=== PATIENT | female | born 1970 | race Caucasian/White ===

== ENCOUNTER 2018-09-05 05:33 | Inpatient (IN) | payer OTHER ==
[~2018-09-05] VITALS: Ht 175.3 cm; Wt 97.0 kg
--- NOTE | 2018-09-05 05:49 | ERD ---
ER Documentation Chief Complaint Chief Complaint BIB from [facility],low Na 118 HPI This is a 47-year-old from [facility] secondary to capitation for insurance reasons. She was found to have a sodium of 118 and then treated with normal saline. Patient is capitated to the hospitalist here. Hospitalist made aware upon arrival. Repeat chemistry profile sent off upon arrival to the ER ROS All systems reviewed and are negative except as per history of present illness. Allergies Allergies: Coded Allergies: No Known Allergy (Unverified , 09/05/18) Physical Exam Vitals Vital Signs Date Temp Pulse Resp B/P (MAP) Pulse Ox O2 O2 Flow FiO2 Time Delivery Rate 09/05/18 97.5 86 18 163/99 100 05:39 (120) Physical Exam Const: No acute distress Head: Atraumatic Eyes: Normal Conjunctiva ENT: Normal External Ears, Nose and Mouth. Neck: Full range of motion. No meningismus. Resp: Clear to auscultation bilaterally Cardio: Regular rate and rhythm, no murmurs Abd: Soft, non tender, non distended. Normal bowel sounds Skin: No petechiae or rashes Back: No midline or flank tenderness Ext: No cyanosis, or edema Neur: Awake and alert Psych: Normal Mood and Affect Procedures/MDM Chart reviewed. Patient will be admitted to telemetry for correction of hyponatremia which is severe. Hospitalist made aware at 5:49 AM. Departure Diagnosis: Primary Impression: Hyponatremia Condition: Serious JUAN ANTONIO LOZA Sep 05, 2018 05:49
[2018-09-05] MEDS: ACETAMINOPHEN 325 MG TAB PO PRN ×2 (06:58→16:37)
[2018-09-05] MEDS: SOD CHLORIDE 0.9% 1,000 ML IV SCH ×3 (06:58→22:31)
[2018-09-05] MEDS ORDERED: NACL 0.9% 3 ML SYG IV SCH (07:00)
[2018-09-05] MEDS ORDERED: BENA10TA4 PO (07:15)
[2018-09-05] MEDS ORDERED: CLZP100T PO (07:16)
[2018-09-05] MEDS ORDERED: METF100010 PO (07:17)
[2018-09-05] MEDS ORDERED: FAMO40TA66 PO (07:17)
[2018-09-05] MEDS ORDERED: TRAM50TA PO (07:18)
[2018-09-05 08:02] VITALS: BP 172/90; PULSE 80; RESP 18
[2018-09-05 08:24] VITALS: Ht 175.3 cm; Wt 97.0 kg
--- NOTE | 2018-09-05 08:40 | HP ---
Date/Time of Note Date/Time of Note DATE: 09/05/18 TIME: 08:36 Assessment/Plan VTE Prophylaxis Pharmacological prophylaxis: heparin Lines/Catheters IV Catheter Type (from Nrsg): Saline Lock Assessment/Plan Assessment/Plan 1. Hyponatremia -Patient is on Clozaril for schizophrenia, but has been taking SSRIs since early -Plasma and urine osmolality, urine sodium -Consider nephrology consult 2. Left hip pain: -will order x-ray of the hip 3. Type 2 diabetes: Continue metformin 4. Hypertension: Adjust antihypertensive as needed 5. Schizophrenia: Continue Clozaril Result Diagram: 09/05/18 0556 09/05/18 0556 Results 24hrs Laboratory Tests Test 09/05/18 05:56 09/05/18 08:22 White Blood Count 6.1 Red Blood Count 3.32 L Hemoglobin 10.2 L Hematocrit 28.8 L Mean Corpuscular Volume 86.7 Mean Corpuscular Hemoglobin 30.7 Mean Corpuscular Hemoglobin Concent 35.4 Red Cell Distribution Width 12.5 Platelet Count 282 Mean Platelet Volume 10.0 Immature Granulocytes % 0.300 Neutrophils % 73.0 Lymphocytes % 18.0 Monocytes % 8.1 Eosinophils % 0.3 Basophils % 0.3 Nucleated Red Blood Cells % 0.0 Immature Granulocytes # 0.020 Neutrophils # 4.4 Lymphocytes # 1.1 Monocytes # 0.5 Eosinophils # 0.0 Basophils # 0.0 Nucleated Red Blood Cells # 0.0 Sodium Level 129 L Potassium Level 4.1 Chloride Level 97 Carbon Dioxide Level 24 Anion Gap 8 Blood Urea Nitrogen 12 Creatinine 0.75 Est Glomerular Filtrat Rate mL/min > 60 Glucose Level 121 Uric Acid 3.7 Calcium Level 9.1 Magnesium Level 1.7 Total Bilirubin 0.8 Direct Bilirubin 0.00 Indirect Bilirubin 0.8 Aspartate Amino Transf (AST/SGOT) 19 Alanine Aminotransferase (ALT/SGPT) 17 Alkaline Phosphatase 102 Total Protein 6.2 Albumin 3.5 Globulin 2.70 Albumin/Globulin Ratio 1.29 Bedside Glucose 161 HPI/ROS Admit Date/Time Admit Date/Time Sep 05, 2018 at 05:47 Hx of Present Illness This is a 47-year-old female with a history of hypertension, type 2 diabetes, schizophrenia who initially presented to [facility] complaining of shortness of breath and palpitation X 5 days. She also told me that she has been having left hip pain for the past 3 weeks. She states she did fall on her knees and she thinks is probably related to that. At the outside facility, she was found to have sodium of 118. Patient was transferred to [facility] for insurance reason. She denied chest pain, nausea/vomiting or diarrhea. She said that she has been eating fine. PMH/Family/Social Past Medical History Medical History: other (See HPI) Medications Current Medications Sodium Chloride 1,000 ml @ 100 mls/hr Q10H IV Last administered on 09/05/18at 06:58; Admin Dose 100 MLS/HR; Start 09/05/18 at 06:40 IV Flush (NS 3 ml) 3 ml PER PROTOCOL IV ; Start 09/05/18 at 07:00 Aspirin (Aspirin) 81 mg DAILY PO ; Start 09/05/18 at 09:00 Acetaminophen (Tylenol Tab) 650 mg Q6H PRN PO .PAIN 1-3 OR TEMP Last administered on 09/05/18at 06:58; Admin Dose 650 MG; Start 09/05/18 at 07:00 Heparin Sodium (Porcine) (Heparin (5000 Units/1ml)) 5,000 unit Q12 SC ; Start 09/05/18 at 09:00 Coded Allergies: No Known Allergy (Unverified , 09/05/18) Past Surgical History Past Surgical Hx: other (See HPI) Family History Significant Family History: no pertinent family hx Social History Alcohol Use: none Smoking Status: Never smoker Drug Use: none Exam/Review of Systems Vital Signs Vitals Vital Signs Date Temp Pulse Resp B/P (MAP) Pulse Ox O2 O2 Flow FiO2 Time Delivery Rate 09/05/18 98.3 80 18 172/90 100 Room Air 08:02 (117) Exam Constitutional: other (No acute distress) Head: normocephalic, atraumatic Eyes: EOMI, PERRL Respiratory: clear to auscultation, normal air movement Cardiovascular: regular rate and rhythm, nl pulses Gastrointestinal: soft Extremities: normal pulses JUAN ANTONIO OLIVEIRA MD Sep 05, 2018 08:40
[2018-09-05] MEDS: HEPARIN 5,000 UNIT/1 ML VIAL SC SCH ×2 (09:55→21:10)
[2018-09-05] MEDS: ASPIRIN 81 MG TAB PO SCH (09:55)
[2018-09-05] MEDS: metFORMIN 500 MG TAB PO SCH ×2 (09:56→18:10)
[2018-09-05] MEDS ORDERED: GLUCAGON 1 MG INJ IM PRN (10:00)
[2018-09-05] MEDS ORDERED: GLUCOSE GEL 15 GRAM TUBE PO PRN ×2 (10:00)
[2018-09-05] MEDS ORDERED: GLUCOSE GEL 15 GRAM TUBE BUCCAL PRN (10:00)
[2018-09-05] MEDS ORDERED: DEXTROSE 50% 50 ML SYRINGE IV PRN ×2 (10:00)
--- NOTE | 2018-09-05 14:26 | PN ---
Date/Time of Note Date/Time of Note DATE: 09/05/18 TIME: 14:12 Assessment/Plan VTE Prophylaxis SCD applied (from Nsg): Yes Pharmacological prophylaxis: heparin Lines/Catheters IV Catheter Type (from Nrsg): Saline Lock Assessment/Plan Assessment/Plan 1. Hyponatremia due to excessive water intake(a gallon a day), free water restr iction to 100 cc per day 2. Left lower extremity pain at the back of the thigh, muscular, pain control 3. Right breast infection lesion, doxycycline 4. Type 2 diabetes: Continue metformin 5. Hypertension, benazepril 6. Schizophrenia: Continue Clozaril 7. DVT prophylaxis: heparin Result Diagram: 09/05/18 0556 09/05/18 0556 Results 24hrs Laboratory Tests Test 09/05/18 05:56 09/05/18 08:22 White Blood Count 6.1 Red Blood Count 3.32 L Hemoglobin 10.2 L Hematocrit 28.8 L Mean Corpuscular Volume 86.7 Mean Corpuscular Hemoglobin 30.7 Mean Corpuscular Hemoglobin Concent 35.4 Red Cell Distribution Width 12.5 Platelet Count 282 Mean Platelet Volume 10.0 Immature Granulocytes % 0.300 Neutrophils % 73.0 Lymphocytes % 18.0 Monocytes % 8.1 Eosinophils % 0.3 Basophils % 0.3 Nucleated Red Blood Cells % 0.0 Immature Granulocytes # 0.020 Neutrophils # 4.4 Lymphocytes # 1.1 Monocytes # 0.5 Eosinophils # 0.0 Basophils # 0.0 Nucleated Red Blood Cells # 0.0 Sodium Level 129 L Potassium Level 4.1 Chloride Level 97 Carbon Dioxide Level 24 Anion Gap 8 Blood Urea Nitrogen 12 Creatinine 0.75 Est Glomerular Filtrat Rate mL/min > 60 Glucose Level 121 Osmolality 263 L Uric Acid 3.7 Calcium Level 9.1 Magnesium Level 1.7 Total Bilirubin 0.8 Direct Bilirubin 0.00 Indirect Bilirubin 0.8 Aspartate Amino Transf (AST/SGOT) 19 Alanine Aminotransferase (ALT/SGPT) 17 Alkaline Phosphatase 102 Total Protein 6.2 Albumin 3.5 Globulin 2.70 Albumin/Globulin Ratio 1.29 Bedside Glucose 161 Subjective 24 Hr Interval Summary Free Text/Dictation left leg pain Exam/Review of Systems Exam Vitals Vital Signs Date Temp Pulse Resp B/P (MAP) Pulse Ox O2 O2 Flow FiO2 Time Delivery Rate 09/05/18 98.3 80 18 172/90 100 Room Air 08:02 (117) Constitutional: alert, oriented, well developed Psych: no complaints, nl mood/affect Head: normocephalic, atraumatic Eyes: nl conjunctiva, EOMI, nl lids, PERRL ENMT: nl external ears & nose, nl lips & teeth, nl nasal mucosa & septum Neck: supple, non-tender Respiratory: clear to auscultation, normal air movement; No congested cough, No crackles/rales, No diminished breath sounds, No intercostal retraction, No labored breathing, No respirations, No tactile fremitus, No wheezing, No other Cardiovascular: regular rate and rhythm, nl pulses; No bruits, No diastolic murmur, No edema, No gallop, No irregular rhythm, No jugular venous distention (JVD), No murmurs/extra sounds, No rub, No systolic murmur, No S3, No S4, No other Gastrointestinal: soft, nl liver, spleen, non-tender Musculoskeletal: nl extremities to inspection Extremities: normal pulses; No calf tenderness, No cyanosis, No clubbing, No edema, No pitting pedal edema, No palpable cord, No tenderness, No other 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: 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, nl mental status, nl speech, nl strength Skin: other (right breast with a skin discolored lesion) Results Results 24hrs Laboratory Tests Test 09/05/18 05:56 09/05/18 08:22 White Blood Count 6.1 Red Blood Count 3.32 L Hemoglobin 10.2 L Hematocrit 28.8 L Mean Corpuscular Volume 86.7 Mean Corpuscular Hemoglobin 30.7 Mean Corpuscular Hemoglobin Concent 35.4 Red Cell Distribution Width 12.5 Platelet Count 282 Mean Platelet Volume 10.0 Immature Granulocytes % 0.300 Neutrophils % 73.0 Lymphocytes % 18.0 Monocytes % 8.1 Eosinophils % 0.3 Basophils % 0.3 Nucleated Red Blood Cells % 0.0 Immature Granulocytes # 0.020 Neutrophils # 4.4 Lymphocytes # 1.1 Monocytes # 0.5 Eosinophils # 0.0 Basophils # 0.0 Nucleated Red Blood Cells # 0.0 Sodium Level 129 L Potassium Level 4.1 Chloride Level 97 Carbon Dioxide Level 24 Anion Gap 8 Blood Urea Nitrogen 12 Creatinine 0.75 Est Glomerular Filtrat Rate mL/min > 60 Glucose Level 121 Osmolality 263 L Uric Acid 3.7 Calcium Level 9.1 Magnesium Level 1.7 Total Bilirubin 0.8 Direct Bilirubin 0.00 Indirect Bilirubin 0.8 Aspartate Amino Transf (AST/SGOT) 19 Alanine Aminotransferase (ALT/SGPT) 17 Alkaline Phosphatase 102 Total Protein 6.2 Albumin 3.5 Globulin 2.70 Albumin/Globulin Ratio 1.29 Bedside Glucose 161 Medications Medication Current Medications Sodium Chloride 1,000 ml @ 100 mls/hr Q10H IV Last administered on 09/05/18at 06:58; Admin Dose 100 MLS/HR; Start 09/05/18 at 06:40 IV Flush (NS 3 ml) 3 ml PER PROTOCOL IV ; Start 09/05/18 at 07:00 Aspirin (Aspirin) 81 mg DAILY PO Last administered on 09/05/18at 09:55; Admin Dose 81 MG; Start 09/05/18 at 09:00 Acetaminophen (Tylenol Tab) 650 mg Q6H PRN PO .PAIN 1-3 OR TEMP Last administered on 09/05/18at 06:58; Admin Dose 650 MG; Start 09/05/18 at 07:00 Heparin Sodium (Porcine) (Heparin (5000 Units/1ml)) 5,000 unit Q12 SC Last administered on 09/05/18at 09:55; Admin Dose 5,000 UNIT; Start 09/05/18 at 09:00 Clozapine (Clozaril) 300 mg QHS PO ; Start 09/05/18 at 21:00 Famotidine (Pepcid) 40 mg HS PO ; Start 09/05/18 at 21:00 Metformin HCl (Glucophage) 1,000 mg WITH BREAKFAST DINNE PO Last administered on 09/05/18at 09:56; Admin Dose 1,000 MG; Start 09/05/18 at 09:50 Miscellaneous Information 1 ea NOTE XX ; Start 09/05/18 at 10:00 Glucose (Glutose) 15 gm Q15M PRN PO DECREASED GLUCOSE; Start 09/05/18 at 10:00 Glucose (Glutose) 22.5 gm Q15M PRN PO DECREASED GLUCOSE; Start 09/05/18 at 10:00 Dextrose (D50w Syringe) 25 ml Q15M PRN IV DECREASED GLUCOSE; Start 09/05/18 at 10:00 Dextrose (D50w Syringe) 50 ml Q15M PRN IV DECREASED GLUCOSE; Start 09/05/18 at 10:00 Glucagon (Glucagen) 1 mg Q15M PRN IM DECREASED GLUCOSE; Start 09/05/18 at 10:00 Glucose (Glutose) 15 gm Q15M PRN BUCCAL DECREASED GLUCOSE; Start 09/05/18 at 10:00 ROQUE MA MD Sep 05, 2018 14:24
[2018-09-05] MEDS: DOXYCYCLINE 100 MG TAB PO SCH ×2 (14:47→21:01)
[2018-09-05] MEDS: BENAZEPRIL 20 MG TAB PO SCH (14:53)
[2018-09-05] MEDS: INSULIN ASPART [NOVOLOG] 3 ML PEN SC SCH ×2 (18:12→20:57)
[2018-09-05 19:31] VITALS: BP 123/61; PULSE 85; RESP 20
[2018-09-05] MEDS: CLOZAPINE 100 MG TABLET PO SCH (21:01)
[2018-09-05] MEDS: FAMOTIDINE 20 MG TAB PO SCH (21:02)
[2018-09-06 02:16] VITALS: BP 120/63; PULSE 82; RESP 20
[2018-09-06] MEDS: ACETAMINOPHEN 325 MG TAB PO PRN ×3 (03:48→23:24)
[2018-09-06 08:00] VITALS: BP 121/69; PULSE 73; RESP 18
[2018-09-06] MEDS: INSULIN ASPART [NOVOLOG] 3 ML PEN SC SCH ×4 (09:35→21:00)
[2018-09-06] MEDS: metFORMIN 500 MG TAB PO SCH ×2 (09:36→17:53)
[2018-09-06] MEDS: DOXYCYCLINE 100 MG TAB PO SCH ×2 (09:37→21:07)
[2018-09-06] MEDS: HEPARIN 5,000 UNIT/1 ML VIAL SC SCH ×2 (09:38→21:08)
[2018-09-06] MEDS: ASPIRIN 81 MG TAB PO SCH (09:38)
[2018-09-06] MEDS: BENAZEPRIL 20 MG TAB PO SCH (09:39)
[2018-09-06 14:00] VITALS: BP 116/70; PULSE 67; RESP 18
--- NOTE | 2018-09-06 14:53 | PN ---
Date/Time of Note Date/Time of Note DATE: 09/06/18 TIME: 14:42 Assessment/Plan VTE Prophylaxis Risk score (from Ns)>0 risk: 3 SCD applied (from Ns): Yes Pharmacological prophylaxis: heparin Lines/Catheters IV Catheter Type (from Nrsg): Peripheral IV Assessment/Plan Assessment/Plan 1. 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 Hyponatremia due to excessive water intake(a gallon a day), free water restriction to 100 cc per day, corrected 3. Right breast infection lesion, doxycycline 4. Type 2 diabetes: Continue metformin 5. Hypertension, benazepril 6. Schizophrenia: Continue Clozaril 7. Constipation, laxative 8. DVT prophylaxis: heparin Result Diagram: 09/06/18 0431 09/06/18 0431 Results 24hrs Laboratory Tests Test 09/05/18 16:21 09/05/18 18:10 09/05/18 20:56 09/06/18 04:31 Urine Osmolality 152 L Urine Random Sodium < 13 L Urine Random 22.1 L Potassium Bedside Glucose 154 144 White Blood Count 7.0 Red Blood Count 3.21 L Hemoglobin 9.6 L Hematocrit 28.5 L Mean Corpuscular 88.8 Volume Mean Corpuscular 29.9 Hemoglobin Mean Corpuscular 33.7 Hemoglobin Concent Red Cell 13.4 Distribution Width Platelet Count 297 Mean Platelet Volume 10.0 Immature 0.300 Granulocytes % Neutrophils % 64.5 Lymphocytes % 24.0 Monocytes % 10.5 Eosinophils % 0.6 Basophils % 0.1 Nucleated Red Blood 0.0 Cells % Immature 0.020 Granulocytes # Neutrophils # 4.5 Lymphocytes # 1.7 Monocytes # 0.7 Eosinophils # 0.0 Basophils # 0.0 Nucleated Red Blood 0.0 Cells # Sodium Level 135 Potassium Level 4.4 Chloride Level 104 Carbon Dioxide Level 22 Anion Gap 9 Blood Urea Nitrogen 15 Creatinine 0.88 Est Glomerular > 60 Filtrat Rate mL/min Glucose Level 108 Calcium Level 8.9 Phosphorus Level 4.3 Magnesium Level 1.8 Test 09/06/18 09:32 09/06/18 13:02 Bedside Glucose 151 137 Subjective 24 Hr Interval Summary Free Text/Dictation still has left leg pain Exam/Review of Systems Exam Vitals Vital Signs Date Temp Pulse Resp B/P (MAP) Pulse Ox O2 O2 Flow FiO2 Time Delivery Rate 09/06/18 98.0 73 18 121/69 98 08:00 (86) 09/06/18 Room Air 02:16 09/05/18 2.0 07:48 Intake and Output 09/05/18 09/05/18 09/06/18 1515:00 23:00 07:00 IntakeIntake Total 1000 ml 200 ml OutputOutput Total 400 ml BalanceBalance -400 ml 1000 ml 200 ml Constitutional: alert, oriented, well developed Head: normocephalic, atraumatic Eyes: nl conjunctiva, EOMI, nl lids ENMT: nl external ears & nose, nl lips & teeth, nl nasal mucosa & septum Neck: supple, non-tender Respiratory: clear to auscultation, normal air movement; No congested cough, No crackles/rales, No diminished breath sounds, No intercostal retraction, No labored breathing, No respirations, No tactile fremitus, No wheezing, No other Cardiovascular: regular rate and rhythm, nl pulses; No bruits, No diastolic murmur, No edema, No gallop, No irregular rhythm, No jugular venous distention (JVD), No murmurs/extra sounds, No rub, No systolic murmur, No S3, No S4, No other Gastrointestinal: soft, nl liver, spleen, non-tender Musculoskeletal: nl extremities to inspection Extremities: normal pulses; No calf tenderness, No cyanosis, No clubbing, No edema, No pitting pedal edema, No palpable cord, No tenderness, No other 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, nl mental status, nl speech, nl strength Results Results 24hrs Laboratory Tests Test 09/05/18 16:21 09/05/18 18:10 09/05/18 20:56 09/06/18 04:31 Urine Osmolality 152 L Urine Random Sodium < 13 L Urine Random 22.1 L Potassium Bedside Glucose 154 144 White Blood Count 7.0 Red Blood Count 3.21 L Hemoglobin 9.6 L Hematocrit 28.5 L Mean Corpuscular 88.8 Volume Mean Corpuscular 29.9 Hemoglobin Mean Corpuscular 33.7 Hemoglobin Concent Red Cell 13.4 Distribution Width Platelet Count 297 Mean Platelet Volume 10.0 Immature 0.300 Granulocytes % Neutrophils % 64.5 Lymphocytes % 24.0 Monocytes % 10.5 Eosinophils % 0.6 Basophils % 0.1 Nucleated Red Blood 0.0 Cells % Immature 0.020 Granulocytes # Neutrophils # 4.5 Lymphocytes # 1.7 Monocytes # 0.7 Eosinophils # 0.0 Basophils # 0.0 Nucleated Red Blood 0.0 Cells # Sodium Level 135 Potassium Level 4.4 Chloride Level 104 Carbon Dioxide Level 22 Anion Gap 9 Blood Urea Nitrogen 15 Creatinine 0.88 Est Glomerular > 60 Filtrat Rate mL/min Glucose Level 108 Calcium Level 8.9 Phosphorus Level 4.3 Magnesium Level 1.8 Test 09/06/18 09:32 09/06/18 13:02 Bedside Glucose 151 137 Medications Medication Current Medications Sodium Chloride 1,000 ml @ 50 mls/hr Q20H IV Last administered on 09/05/18 22:31; Admin Dose 50 MLS/HR; Start 09/05/18 at 06:40 IV Flush (NS 3 ml) 3 ml PER PROTOCOL IV ; Start 09/05/18 at 07:00 Aspirin (Aspirin) 81 mg DAILY PO Last administered on 09/06/18 09:38; Admin Dose 81 MG; Start 09/05/18 at 09:00 Acetaminophen (Tylenol Tab) 650 mg Q6H PRN PO .PAIN 1-3 OR TEMP Last administered on 09/06/18 03:48; Admin Dose 650 MG; Start 09/05/18 at 07:00 Heparin Sodium (Porcine) (Heparin (5000 Units/1ml)) 5,000 unit Q12 SC Last administered on 09/06/18 09:38; Admin Dose 5,000 UNIT; Start 09/05/18 at 09:00 Clozapine (Clozaril) 300 mg QHS PO Last administered on 09/05/18 21:01; Admin Dose 300 MG; Start 09/05/18 at 21:00 Famotidine (Pepcid) 40 mg HS PO Last administered on 09/05/18 21:02; Admin Dose 40 MG; Start 09/05/18 at 21:00 Metformin HCl (Glucophage) 1,000 mg WITH BREAKFAST DINNE PO Last administered on 09/06/18 09:36; Admin Dose 1,000 MG; Start 09/05/18 at 09:50 Miscellaneous Information 1 ea NOTE XX ; Start 09/05/18 at 10:00 Glucose (Glutose) 15 gm Q15M PRN PO DECREASED GLUCOSE; Start 09/05/18 at 10:00 Glucose (Glutose) 22.5 gm Q15M PRN PO DECREASED GLUCOSE; Start 09/05/18 at 10:00 Dextrose (D50w Syringe) 25 ml Q15M PRN IV DECREASED GLUCOSE; Start 09/05/18 at 10:00 Dextrose (D50w Syringe) 50 ml Q15M PRN IV DECREASED GLUCOSE; Start 09/05/18 at 10:00 Glucagon (Glucagen) 1 mg Q15M PRN IM DECREASED GLUCOSE; Start 09/05/18 at 10:00 Glucose (Glutose) 15 gm Q15M PRN BUCCAL DECREASED GLUCOSE; Start 09/05/18 at 10:00 Benazepril HCl (Lotensin) 20 mg DAILY PO Last administered on 09/06/18at 09:39; Admin Dose 20 MG; Start 09/05/18 at 14:30 Doxycycline Hyclate (Vibramycin) 100 mg BID PO Last administered on 09/06/18at 09:37; Admin Dose 100 MG; Start 09/05/18 at 14:30 Insulin Aspart (Novolog Insulin Pen) NOVOLOG *MODERATE* ALGORITHM WITH MEALS BEDTIME SC Last administered on 09/06/18at 09:35; Admin Dose 2 UNIT; Start 09/05/18 at 17:55 ROQUE MA MD Sep 06, 2018 14:52
[2018-09-06] MEDS ORDERED: BISACODYL (EC) 5 MG TAB PO ONE (15:00)
[2018-09-06 20:04] VITALS: BP 141/91; PULSE 98; RESP 18
[2018-09-06] MEDS: FAMOTIDINE 20 MG TAB PO SCH (21:07)
[2018-09-06] MEDS: CLOZAPINE 100 MG TABLET PO SCH (21:07)
--- NOTE | 2018-09-07 01:18 | CONS ---
DATE OF ADMISSION: 09/05/2018 DATE OF CONSULTATION: 09/06/2018 REQUESTING PHYSICIAN: Dr. Moody. INDICATION FOR CONSULTATION: Lumbar radiculopathy. HISTORY OF PRESENT ILLNESS: The patient is a 47-year-old female with the history of schizophrenia wh o was actually transferred from [facility] due to hyponatremia. The patient also had compla ints of chronic left hip pain. The patient states that she began having pain in her left hip/buttock that radiates down the posterior left lower extremity in February. She states the pain has been pers istent and her primary physician is aware of this. She denies any weakness. She denies any right-si ded radiating symptoms. She denies any numbness or tingling. She denies any saddle anesthesia. The patient has a history she says of bowel incontinence as well as intermittent constipation since 2006 . She says for the past 10 days she has been constipated and she will have bowel movements generally 2 to 3 days, but has no acute changes in this regard. She denies any urinary incontinence. As of , the patient has not had any significant nonoperative therapy she states for this issue. The travis ent had an MRI which showed degenerative disk disease at L4-L5 and L5-S1 as well as a left-sided syno vial cyst causing stenosis, lateral recess and foraminal stenosis in the left side. There is no evid ence of spondylolisthesis. PAST MEDICAL HISTORY: Significant for schizophrenia, hypertension, patient is legally blind, as well as recent hyponatremia. The patient has history of diabetes. SOCIAL HISTORY: The patient is nonsmoker, nondrinker, does not use illicit drugs. FAMILY HISTORY: No reported history of easy bruising or bleeding. ALLERGIES: NO KNOWN DRUG ALLERGIES. PHYSICAL EXAMINATION: VITAL SIGNS: The patient's temperature is 97.8, pulse 98, respirations 18, blood pressure 141/91. GENERAL: The patient is a well-developed, well-nourished middle-aged female lying in the hospital be d in no acute distress. HEAD AND NECK: Normocephalic, atraumatic. EXTREMITIES: Motor exam of lower extremity is 5/5. Deep tendon reflexes 1+. She had no clonus, Bab inski or Moiz sign. Grossly intact sensation to light touch. MUSCULOSKELETAL: The patient has a positive left straight leg raise test. REVIEW OF RADIOGRAPHIC RESULTS: The patient had an MRI of the lumbar spine. I reviewed this study a s well as the radiologist's interpretation. Radiologist states there is multilevel degenerative disk disease most prominent at L5-S1, but there is prominent disk height loss, but severe to moderate at L4-L5. There is multilevel facet arthropathy, most prominent at L4-L5 and L3-L4 with degenerative bi lateral perifacet edema and inflammation as well as stress-related edema in the L4 and L5 pedicles. At L4-L5, there is moderate right and severe left facet arthropathy and a large left intracanalicular synovial cyst measuring 1.5 cm with mass effect on the left side thecal sac and subarticular recess with mass effect on the traversing left L5 nerve root. There is moderate overall canal stenosis and moderate left neural foramen narrowing at its level. There is broad-based disk bulge and a large rig ht foraminal extraforaminal disk protrusion resulting in moderate to severe right neural foraminal na rrowing. There is also a broad-based bulge at L3-L4 with annular fissure and borderline mild spinal canal stenosis and a central disk protrusion at L5-S1 with annular fissure above in the traversing S1 nerve root. ASSESSMENT AND PLAN: A 47-year-old female with a radiculopathy and L5 synovial cyst. I discussed artemio collier's signs, symptoms, physical examination, and radiographic findings with her and her family. I explained the patient has a lumbar radiculopathy due to a synovial cyst. The patient does have degen erative disk disease at L4-5 and L5-S1 as well as some facet arthropathy. However, the patient repor t that she did not have any significant chronic low back pain and that she only currently has radiati ng pain from the buttock and lower extremities, but not in her low back. Therefore, the other findin gs are probably are not likely symptomatic and her symptoms are likely simply due to the mass effect of the synovial cyst itself. The patient has not had any nonoperative therapy for this. She does no t have any focal neurologic deficits. I advised the patient to follow up with her primary physician where nonoperative treatment can be attempted. This is a large synovial cyst and may be possibly yasmani nable to aspiration, though I would not recommend such treatment. As this is the first imaging of th e cyst, it is possible this could resolve with time, though this is unlikely and should the patient's symptoms worsen, surgical intervention will likely be necessary. I discussed resection of the cyst alone versus resection and fusion. The patient should be evaluated with flexion and extension x-rays once her pain is resolved somewhat to assess for any instability. Should she have any dynamic insta bility, then a fusion would more likely benefit her. Now, the patient should recover from her medica l issues and follow with her primary physician where she had been referred for pain management and in itial treatment. The patient and her family expressed understanding and agreement with this plan of care. Dictated By: TREVON NEW MD, LG/LOLLY Conf#: [id number] DID#: [id number] CC: JUAN ANTONIO OLIVEIRA MD; ROQUE MA MD;*End*
[2018-09-07 02:14] VITALS: BP 140/88; PULSE 84; RESP 18
[2018-09-07] MEDS: SOD CHLORIDE 0.9% 1,000 ML IV SCH (04:31)
[2018-09-07] MEDS: ACETAMINOPHEN 325 MG TAB PO PRN ×2 (06:02→12:05)
[2018-09-07 07:44] VITALS: BP 139/81; PULSE 78; RESP 18
[2018-09-07] MEDS: INSULIN ASPART [NOVOLOG] 3 ML PEN SC SCH ×2 (07:50→11:40)
[2018-09-07] MEDS: DOXYCYCLINE 100 MG TAB PO SCH (08:47)
[2018-09-07] MEDS: ASPIRIN 81 MG TAB PO SCH (08:47)
[2018-09-07] MEDS: metFORMIN 500 MG TAB PO SCH (08:47)
[2018-09-07] MEDS: BENAZEPRIL 20 MG TAB PO SCH (08:48)
[2018-09-07] MEDS: HEPARIN 5,000 UNIT/1 ML VIAL SC SCH (08:51)
[2018-09-07] MEDS ORDERED: POLYETHYLENE GLYCOL 17 GM PACKET PO SCH (09:00)
[2018-09-07 14:07] VITALS: BP 140/82; PULSE 90; RESP 18
[2018-09-07] MEDS ORDERED: DOXY100T2 PO (16:19)
--- NOTE | 2018-09-07 16:32 | DS ---
Date/Time of Note Date/Time of Note DATE: 09/07/18 TIME: 16:19 Discharge Summary Admission/Discharge Info Admit Date/Time Sep 05, 2018 at 05:47 Discharge Date/Time Discharge Diagnosis 1. left lower extremity sciatica, probably due to L5 synovial cyst, pain con trol, follow up with PCP, may need surgical treatment 2. Degenerative spinal disease 3. Hyponatremia due to excessive water intake(a gallon a day), free water restriction to 100 cc per day, corrected 4. Right breast infection lesion, doxycycline, follow up with PCP 5. Hypertension, benazepril 6. Schizophrenia: Continue Clozaril 4. Type 2 diabetes: Continue metformin Patient Condition: Stable Procedures PROCEDURE: MRI OF THE LUMBAR SPINE WITHOUT AND WITH GADOLINIUM. CLINICAL INDICATION: Lower back pain radiating to the left lower extremity TECHNIQUE: Multiple MRI images utilizing multiple pulse sequences and all three planes were obtained before and after the intravenous administration of 10cc of ProHance gadolinium. Obtain sequences include localizer, sagittal T1, T2, T2 with fat saturation, axial T1, T2, postcontrast axial T1 and sagittal T1 with fat saturation. Images were interpreted on high-resolution PACS system. COMPARISON: None available FINDINGS: Study assumes 5 non-rib bearing lumbar type vertebral bodies. Lumbar lordosis is maintained. Vertebral body heights are maintained. No acute fracture. Heterogeneous marrow signal. Visualized cord signal is intact. Conus terminates at L1. Visualized SI joints demonstrate hypertrophic change. Visualized paravertebral muscles are intact. Retroverted uterus. Mildly prominent endometrium. Probable 1.5 cm right adnexal cyst. Findings at specific disc levels: T12-L1: Disc height and hydration is preserved. Minimal facet hypertrophy. No significant disc bulge, spinal canal stenosis or neural foraminal narrowing. L1-L2: Disc height and signal is intact. Less than 2 mm retrolisthesis. Mild facet hypertrophy. Minimal annular bulge. Mild bilateral neural foraminal narrowing. No significant spinal canal stenosis. L2-L3: Disc height and signal is intact. Mild facet hypertrophy and ligamentum flavum infolding. 2 mm annular bulge asymmetric to the right with a possible small annular fissure mildly effacing the ventral thecal sac. No significant spinal canal stenosis. Mild bilateral neural foraminal narrowing. L3-L4: Disc height and signal is intact. Mild to moderate facet hypertrophy and ligamentum flavum infolding. Edema within the left L4 pedicle and bilateral bridgette facet edema. 2.5 mm broad-based disc bulge and annular fissure effacing the ventral thecal sac. Focal mild narrowing of the subarticular recesses. Borderline mild spinal canal stenosis with AP diameter of the thecal sac measuring approximately 10 mm at midline. Mild to moderate right and moderate left neural foraminal narrowing. L4-L5: Disc desiccation and moderate disc height loss with Schmorl's node formation and anterior osteophyte formation. Moderate right and severe left facet hypertrophy and ligamentum flavum infolding. Moderate left facet joint effusion, and mild bilateral bridgette facet edema as well as edema in the left L5 pedicle. Large left-sided intracanalicular synovial cyst measuring approximately 1.5 x 1.2 x 1.1 cm (CC by AP by TV) containing debris with mass effect on the left subarticular recess and left-sided thecal sac, with overall moderate spinal canal stenosis and mass effect on the traversing left L5 nerve root. Moderate left neural foraminal narrowing. Broad-based disc bulge with right foraminal extraforaminal disc protrusion measuring approximately 8 mm with moderate to severe right neural foraminal narrowing and contact of the exiting right L4 nerve root. L5-S1: Severe disc height loss, Schmorl's node formation, vacuum phenomenon and anterior osteophyte formation as well as type 1 modic change. Mild to moderate facet hypertrophy. 3.5 mm central disc protrusion and annular fissure abutting the traversing S1 nerve roots. No significant acquired spinal canal stenosis. Moderate right and mild to moderate left neural foraminal narrowing. IMPRESSION: 1. Multilevel degenerative disc disease with most prominent disc height loss L5-S1 where it is severe, and moderate at L4-L5. 2. Multilevel facet arthropathy most prominent at L4-L5 and L3-L4 where there is degenerative bilateral bridgette facet edema/inflammation, as well as stress- related edema in the left L4 and L5 pedicles. 3. At L4-L5, there is moderate right and severe left facet arthropathy with large left intracanilicular synovial cyst measuring up to 1.5 cm with mass effect on the left-sided thecal sac and left subarticular recess and mass effect on the traversing left L5 nerve root. Overall moderate spinal canal stenosis and moderate left neural foraminal narrowing at this level. Broad-based disc bulge with large right foraminal and extraforaminal disc protrusion resulting in moderate to severe right neural foraminal narrowing with focal contact of the exiting right L4 nerve root. 4. Broad-based disc bulge at L3-L4 with annular fissure with borderline mild spinal canal stenosis subarticular recess narrowing. 5. Central disc protrusion at L5-S1 with annular fissure abutting the traversing S1 nerve roots without significant spinal canal stenosis. 6. Partially imaged retroverted uterus and partially imaged probable right adnexal 1.5 cm cyst, as well as mild prominence of the endometrium which may be physiologic. Correlate with the patient's mental status. RPTAT: AATT Physician Colin Date Time Electronically viewed and signed by Tessy Cantu Physician on 09/06/2018 07:52 RG/ CC: ROQUE MA MD [phone] Hospital Course This is a 47-year-old female with a history of hypertension, type 2 diabetes, schizophrenia who initially presented to [facility] complaining of shortness of breath and palpitation X 5 days. She also told me that she has been having left hip pain for the past 3 weeks. She states she did fall on her knees and she thinks is probably related to that. At the outside facility, she was found to have sodium of 118. Patient was transferred to [facility] for insurance reason. She denied chest pain, nausea/vomiting or diarrhea. She said that she has been eating fine. CXR was unremarkable in outside hospital. Hyponatremia is considered excessive water intake related, she drinks a gallon of water a day. She is treated with free water restriction, hyponatremia resolved. Patient has pain from left buttock down to left lower extremity to the foot. MRI of lumbar spine revealed degenerative lumbar spinal disease and that at L4-L5, there is moderate right and severe left facet arthropathy with large left intracanilicular synovial cyst measuring up to 1.5 cm with mass effect on the left-sided thecal sac and left subarticular recess and mass effect on the traversing left L5 nerve root. Case is reviewed by neurosurgeon Dr. Sosa, he feels the L5 synovial cyst is likely the cause of her sciatica. Patient will be treated conservatively and follow up with PCP, she may need interventional procedure for it if not improved. Patient has a right breast lesion that is an infection. She is put on doxy cycline, the lesion has significantly improved. Patient is informed that she needs a mammogram. Home Meds Active Scripts Doxycycline* (Vibramycin*) 100 Mg Tab, 100 MG PO BID for 7 Days, TAB Prov:ROQUE MA MD 09/07/18 Reported Medications Tramadol Hcl* (Ultram*) 50 Mg Tablet, 50 MG PO Q6H PRN for PAIN, TAB 09/05/18 Metformin Hcl* (Metformin Hcl*) 1,000 Mg Tablet, 1000 MG PO WITH BREAKFAST DINNE, #60 TAB 09/05/18 Famotidine* (Pepcid*) 40 Mg Tablet, 40 MG PO HS, #30 TAB 09/05/18 Clozapine* (Clozaril*) 100 Mg Tab, 300 MG PO QHS, TAB 09/05/18 Benazepril Hcl* (Benazepril Hcl*) 10 Mg Tablet, 10 MG PO DAILY, #30 TAB 09/05/18 Follow-up Plan PCP in one week Primary Care Provider Care Physician No Primary Pending Labs Laboratory Tests Test 09/06/18 17:51 09/06/18 21:12 09/07/18 04:24 09/07/18 08:41 Bedside 97 135 130 Glucose mg/dL (70-220) mg/dL (70-220) mg/dL (70-220) Sodium Level 136 mmol/L (135-14 4) Potassium 4.0 Level mmol/L (3.5-5. 1) Chloride Level 107 mmol/L (97-110 ) Carbon Dioxide 21 Level mmol/L (21-31) Anion Gap 8 (5-13) Blood Urea 17 Nitrogen mg/dl (7-20) Creatinine 0.83 mg/dl (0.44-1. 00) Est Glomerular > 60 Filtrat mL/min (>60) Rate mL/min Glucose Level 98 mg/dl (70-220) Calcium Level 9.2 mg/dl (8.4-10. 2) Test 09/07/18 12:34 Bedside 96 Glucose mg/dL (70-220) ROQUE MA MD Sep 07, 2018 16:31
== END 2018-09-07 16:50 | disposition home or self-care (01) | DRG 641 ==
LOC: E/R 05:33 → MS1 05:47 → EDBEDREQSVC 06:09 → EDBEDREQ 06:09
PROVIDERS: ADMIT Internal Medicine; ATTEND Internal Medicine
DX: E87.1 Hypo-osmolality and hyponatremia (principal); F20.9 Schizophrenia, unspecified; M25.552 Pain in left hip; E11.9 Type 2 diabetes mellitus without complications; I10 Essential (primary) hypertension; M51.17 Intervertebral disc disorders with radiculopathy, lumbosacral region; M71.38 Other bursal cyst, other site; N61.0 Mastitis without abscess; K59.00 Constipation, unspecified; H54.8 Legal blindness, as defined in USA; Z79.4 Long term (current) use of insulin; Z79.82 Long term (current) use of aspirin
CPT/HCPCS: 36415; 72158; 73510; 80048; 80053; 82436; 82962; 83735; 83930; 83935; 84100; 84133; 84300; 84560; 85025; J1644; J1815; J7030

== ENCOUNTER 2019-01-07 08:15 | Inpatient (IN) | payer OTHER ==
[2019-01-07] VITALS (20 sets, daily range): BP systolic 114–166; BP diastolic 65–101; PULSE 71–116; RESP 13–30; Ht 175.3 cm; Wt 97.5 kg
[~2019-01-07] VITALS: Ht 175.3 cm; Wt 97.5 kg
[~2019-01-07 08:15] MED LIST: BENA10TA6 PO; CLZP100T PO; DOXY100T2 PO; FAMO40TA66 PO; METF100010 PO; TRAM50TA PO
[2019-01-07] MEDS ORDERED: LACTATED RINGER'S 1,000 ML IV SCH (13:00)
[2019-01-07] MEDS ORDERED: ROCURONIUM 50 MG INJ ONE (16:22)
[2019-01-07] MEDS ORDERED: PROPOFOL 20 ML ONE (16:22)
[2019-01-07] MEDS ORDERED: CEFAZOLIN 1 GM INJ ONE (16:22)
[2019-01-07] MEDS ORDERED: DESFLURANE 15 MIN ONE (16:22)
[2019-01-07] MEDS ORDERED: MIDAZOLAM 1 MG/ML 2 ML INJ ONE (16:23)
[2019-01-07] MEDS ORDERED: METOCLOPRAMIDE 10 MG INJ ONE (16:23)
[2019-01-07] MEDS ORDERED: ONDANSETRON 4 MG INJ ONE (16:23)
[2019-01-07] MEDS ORDERED: GELATIN SIZE 100 SPONGE ONE (16:35)
[2019-01-07] MEDS ORDERED: POLYMYXIN/BACITRACIN 1L IRRIG ONE (16:35)
[2019-01-07] MEDS ORDERED: ROPIVACAINE 0.5 % 30 ML VIAL ONE ×2 (16:35→16:38)
[2019-01-07] MEDS ORDERED: THROMBIN 5000 UNIT (RECOTHROM) VIAL ONE (16:35)
[2019-01-07] MEDS ORDERED: HEMOSTATIC MATRIX SYG ZFS ONE (16:49)
[2019-01-07] MEDS ORDERED: HYDROmorphONE 2 MG/ML SYG ONE (17:09)
[2019-01-07] MEDS ORDERED: METOPROLOL 5 MG INJ ONE (17:26)
[2019-01-07] MEDS ORDERED: DEXAMETHASONE 4 MG/ML 5 ML INJ ONE (17:48)
[2019-01-07] MEDS ORDERED: GLYCOPYRROLATE 0.4 MG INJ ONE (18:38)
[2019-01-07] MEDS ORDERED: NEOSTIGMINE 3 MG/3 ML SYRINGE ONE (18:38)
[2019-01-07] MEDS ORDERED: niCARdipine 25 MG in SOD CHLORIDE 0.9% 240 ML IV SCH (20:00)
[2019-01-07] MEDS ORDERED: GLUCAGON 1 MG INJ IM PRN (20:00)
[2019-01-07] MEDS ORDERED: GLUCOSE GEL 15 GRAM TUBE PO PRN ×2 (20:00)
[2019-01-07] MEDS ORDERED: GLUCOSE GEL 15 GRAM TUBE BUCCAL PRN (20:00)
[2019-01-07] MEDS ORDERED: DEXTROSE 50% 50 ML SYRINGE IV PRN ×2 (20:00)
[2019-01-07] MEDS ORDERED: ACETAMINOPHEN 650 MG SUPP PR PRN (20:00)
[2019-01-07] MEDS ORDERED: ACETAMINOPHEN 325 MG TAB PO PRN (20:00)
[2019-01-07] MEDS: HYDROmorphONE 0.2 MG/ML PCA IV SCH (20:36)
[2019-01-07] MEDS: INSULIN ASPART [NOVOLOG] 3 ML PEN SC SCH (21:00)
[2019-01-07] MEDS: [UNRECOGNIZED DRUG - OTHER] IV SCH (21:07)
[2019-01-07] MEDS: NS + KCL 20 MEQ 1,000 ML IV SCH (21:39)
[2019-01-07] MEDS ORDERED: CLOZAPINE 100 MG TABLET PO SCH (23:00)
[2019-01-08] VITALS (43 sets, daily range): BP systolic 90–164; BP diastolic 63–94; PULSE 88–111; RESP 14–23
[2019-01-08] MEDS: [UNRECOGNIZED DRUG - OTHER] IV SCH (01:31)
[2019-01-08] MEDS: ACCU-CHEK XX SCH (02:00)
[2019-01-08] MEDS: HYDROmorphONE 0.2 MG/ML PCA IV SCH ×3 (04:34→19:04)
[2019-01-08] MEDS: NS + KCL 20 MEQ 1,000 ML IV SCH ×2 (06:22→16:47)
[2019-01-08] MEDS: INSULIN ASPART [NOVOLOG] 3 ML PEN SC SCH ×3 (08:41→21:44)
[2019-01-08] MEDS: BENAZEPRIL 10 MG TAB PO SCH (12:52)
[2019-01-08] MEDS: metFORMIN 500 MG TAB PO SCH (17:38)
[2019-01-08] MEDS ORDERED: CLOZAPINE 25 MG TAB PO SCH (21:00)
[2019-01-08] MEDS: CLOZAPINE 100 MG TABLET PO SCH (22:28)
[2019-01-09] VITALS (13 sets, daily range): BP systolic 101–144; BP diastolic 70–90; PULSE 74–103; RESP 12–20
[2019-01-09] MEDS: ACCU-CHEK XX SCH ×2 (02:00→21:58)
[2019-01-09] MEDS: NS + KCL 20 MEQ 1,000 ML IV SCH (02:46)
[2019-01-09] MEDS: HYDROmorphONE 0.2 MG/ML PCA IV SCH ×3 (07:14→23:12)
[2019-01-09] MEDS ORDERED: MAGNESIUM SULFATE 2 GM/50 ML 50 ML IVPB ONE (07:30)
[2019-01-09] MEDS: FAMOTIDINE 20 MG TAB PO SCH (09:05)
[2019-01-09] MEDS: BENAZEPRIL 10 MG TAB PO SCH (09:05)
[2019-01-09] MEDS: INSULIN ASPART [NOVOLOG] 3 ML PEN SC SCH ×4 (09:08→21:00)
[2019-01-09] MEDS: metFORMIN 500 MG TAB PO SCH ×2 (09:09→17:51)
[2019-01-09] MEDS: BETHANECHOL 10 MG TAB PO SCH ×2 (16:56→21:00)
[2019-01-09] MEDS: CLOZAPINE 100 MG TABLET PO SCH (21:52)
[2019-01-10 02:05] VITALS: BP 138/82; PULSE 104; RESP 20
[2019-01-10 07:40] VITALS: BP 124/76; PULSE 99; RESP 18
[2019-01-10] MEDS: metFORMIN 500 MG TAB PO SCH ×2 (08:19→17:26)
[2019-01-10] MEDS: BENAZEPRIL 10 MG TAB PO SCH (08:20)
[2019-01-10] MEDS: FAMOTIDINE 20 MG TAB PO SCH (08:20)
[2019-01-10] MEDS: BETHANECHOL 10 MG TAB PO SCH ×3 (08:20→21:00)
[2019-01-10] MEDS: INSULIN ASPART [NOVOLOG] 3 ML PEN SC SCH ×4 (08:22→21:15)
[2019-01-10] MEDS: HYDROCODONE/APAP (5/325) TAB PO PRN ×3 (12:50→19:34)
[2019-01-10 14:03] VITALS: BP 152/88; PULSE 109; RESP 18
[2019-01-10] MEDS ORDERED: ONDANSETRON 4 MG INJ IV PRN (16:00)
[2019-01-10 19:20] VITALS: BP 113/73; PULSE 106; RESP 18
[2019-01-10] MEDS: CLOZAPINE 100 MG TABLET PO SCH (20:55)
[2019-01-11] MEDS: HYDROCODONE/APAP (5/325) TAB PO PRN ×5 (00:11→20:33)
[2019-01-11] MEDS: ACCU-CHEK XX SCH (02:00)
[2019-01-11 02:31] VITALS: BP 121/78; PULSE 100; RESP 18
[2019-01-11 07:21] VITALS: BP 105/65; PULSE 91; RESP 18
[2019-01-11] MEDS: FAMOTIDINE 20 MG TAB PO SCH (08:38)
[2019-01-11] MEDS: metFORMIN 500 MG TAB PO SCH ×2 (08:45→18:22)
[2019-01-11] MEDS: BENAZEPRIL 10 MG TAB PO SCH (08:45)
[2019-01-11] MEDS: INSULIN ASPART [NOVOLOG] 3 ML PEN SC SCH ×4 (08:48→20:41)
[2019-01-11] MEDS: BETHANECHOL 10 MG TAB PO SCH ×3 (08:50→21:00)
[2019-01-11] MEDS ORDERED: MAGNESIUM SULFATE 1 GM/D5W 100 ML IVPB ONE (12:30)
[2019-01-11 15:44] VITALS: BP 106/65; PULSE 92; RESP 18
[2019-01-11 19:50] VITALS: BP 113/68; PULSE 99; RESP 18
[2019-01-11] MEDS: CLOZAPINE 100 MG TABLET PO SCH (20:33)
[2019-01-11] MEDS: SENNA TAB PO SCH (23:08)
[2019-01-12] MEDS ORDERED: DIPHENHYDRAMINE 50 MG CAP PO ONE
[2019-01-12] MEDS: ACCU-CHEK XX SCH (02:00)
[2019-01-12 02:40] VITALS: BP 153/77; PULSE 100; RESP 18
[2019-01-12] MEDS: HYDROCODONE/APAP (5/325) TAB PO PRN ×4 (02:51→21:08)
[2019-01-12 07:37] VITALS: BP 123/73; PULSE 94; RESP 15
[2019-01-12] MEDS: INSULIN ASPART [NOVOLOG] 3 ML PEN SC SCH ×4 (08:46→21:00)
[2019-01-12] MEDS: BETHANECHOL 10 MG TAB PO SCH ×4 (08:47→21:00)
[2019-01-12] MEDS: metFORMIN 500 MG TAB PO SCH ×2 (08:47→17:45)
[2019-01-12] MEDS: FAMOTIDINE 20 MG TAB PO SCH (08:48)
[2019-01-12] MEDS: SENNA TAB PO SCH ×2 (08:48→21:08)
[2019-01-12] MEDS: BENAZEPRIL 10 MG TAB PO SCH (08:49)
[2019-01-12 14:47] VITALS: BP 134/78; PULSE 93; RESP 16
[2019-01-12 19:25] VITALS: BP 129/76; PULSE 93; RESP 18
[2019-01-12] MEDS: CLOZAPINE 100 MG TABLET PO SCH (22:01)
[2019-01-13 01:32] VITALS: BP 151/86; PULSE 89; RESP 18
[2019-01-13] MEDS: ACCU-CHEK XX SCH (02:00)
[2019-01-13 07:20] VITALS: BP 128/75; PULSE 90; RESP 17
[2019-01-13] MEDS: HYDROCODONE/APAP (5/325) TAB PO PRN ×3 (08:02→20:02)
[2019-01-13] MEDS: BETHANECHOL 10 MG TAB PO SCH ×3 (09:00→21:00)
[2019-01-13] MEDS: metFORMIN 500 MG TAB PO SCH ×2 (09:21→18:23)
[2019-01-13] MEDS: SENNA TAB PO SCH ×2 (09:22→20:02)
[2019-01-13] MEDS: FAMOTIDINE 20 MG TAB PO SCH (09:22)
[2019-01-13] MEDS: BENAZEPRIL 10 MG TAB PO SCH (09:22)
[2019-01-13] MEDS: INSULIN ASPART [NOVOLOG] 3 ML PEN SC SCH ×4 (09:25→21:00)
[2019-01-13 14:12] VITALS: BP 119/76; PULSE 93; RESP 18
[2019-01-13 18:28] VITALS: BP 146/90; PULSE 89; RESP 18
[2019-01-13] MEDS: CLOZAPINE 100 MG TABLET PO SCH (21:25)
[2019-01-14] MEDS: ACCU-CHEK XX SCH (02:00)
[2019-01-14 02:10] VITALS: BP 131/78; PULSE 95; RESP 18
[2019-01-14 07:11] VITALS: BP 130/85; PULSE 94; RESP 18
[2019-01-14] MEDS: BETHANECHOL 10 MG TAB PO SCH ×2 (07:53→13:00)
[2019-01-14] MEDS: SENNA TAB PO SCH (08:48)
[2019-01-14] MEDS: metFORMIN 500 MG TAB PO SCH (08:48)
[2019-01-14] MEDS: BENAZEPRIL 10 MG TAB PO SCH (08:49)
[2019-01-14] MEDS: FAMOTIDINE 20 MG TAB PO SCH (08:49)
[2019-01-14] MEDS: HYDROCODONE/APAP (5/325) TAB PO PRN ×2 (08:50→13:24)
[2019-01-14] MEDS: INSULIN ASPART [NOVOLOG] 3 ML PEN SC SCH ×2 (08:52→11:40)
== END 2019-01-14 13:47 | disposition home or self-care (01) | DRG 460 ==
LOC: REC 11:06 → ICU 18:59 → MS1 01-09 06:37
PROVIDERS: ADMIT Neurological Surgery; ATTEND Neurological Surgery
PROC: 0SG30K1 Fusion of Lumbosacral Joint with Nonautologous Tissue Substitute, Posterior Approach, Posterior Column, Open Approach (ICD-10-PCS; 2019-01-07)
PROC: 01NB0ZZ Release Lumbar Nerve, Open Approach (ICD-10-PCS; 2019-01-07)
PROC: 0SG10K1 Fusion of 2 or more Lumbar Vertebral Joints with Nonautologous Tissue Substitute, Posterior Approach, Posterior Column, Open Approach (ICD-10-PCS; principal; 2019-01-07 13:00)
DX: M47.26 Other spondylosis with radiculopathy, lumbar region (principal); M48.061 Spinal stenosis, lumbar region without neurogenic claudication; M71.38 Other bursal cyst, other site; E88.2 Lipomatosis, not elsewhere classified; E11.9 Type 2 diabetes mellitus without complications; F20.9 Schizophrenia, unspecified; H54.62 Unqualified visual loss, left eye, normal vision right eye; I10 Essential (primary) hypertension; Z79.84 Long term (current) use of oral hypoglycemic drugs
CPT/HCPCS: 72100; 72131; 80048; 80053; 82962; 83735; 84703; 85025; 86850; 86900; 86901; 87081; 88304; 97116; 97161; 97530; A4310; J0690; J1100; J1170; J1815; J2250; J2405; J2710; J2765; J2795; J3475; J3480; J7050; J7120